=== PATIENT | male | born 1975 | race African-American/Black ===

== ENCOUNTER 2023-10-03 20:20 | Emergency (ER) | payer SELFPAY ==
[~2023-10-03] VITALS: Ht 188 cm; Wt 127.0 kg
[2023-10-03] MEDS ORDERED: INSULIN REGULAR, HUMAN 100 UNIT/1 ML SQ STA (20:53)
[2023-10-03] MEDS ORDERED: INSULIN REGULAR, HUMAN 100 UNIT/1 ML ONE (21:09)
[2023-10-03 21:36] LABS: ABG HCO3 28 mmol/L (22-26); ABG PCO2 44 mmHg (35-45); ABG PO2 63 mmHg (80-105); ABG TCO2 29
[2023-10-03 21:37] VITALS: BP 131/84; PULSE 86; RESP 18; TEMP 98.3; O2SAT 97
[2023-10-03] MEDS ORDERED: GLIPIZIDE10 MG PO (21:37)
[2023-10-03] MEDS ORDERED: METFORMIN HCL1000 MG PO (21:37)
== END 2023-10-03 21:51 | disposition home or self-care (01) ==
LOC: ER 20:29
DX: R35.89 Other polyuria (principal); E11.65 Type 2 diabetes mellitus with hyperglycemia; I10 Essential (primary) hypertension
CPT/HCPCS: 36415; 36600; 82805; 82948; 99283